=== PATIENT | female | born 1975 | race Caucasian/White ===

== ENCOUNTER 2019-07-12 08:55 | Emergency (ER) | payer OTHER ==
[2019-07-12 09:33] LABS: Absolute Lymphocytes (CBC) 1.6 K/uL (0.7-4.9); Basophils % 0.8 % (0-1.3); Hematocrit 34.4 % (36.0-45.0); Lymphocytes % 22.2 % (15.3-44.8); RBC Red Blood Cell Count 3.82 M/uL (3.86-4.86)
[2019-07-12] MEDS ORDERED: ONDANSETRON 4 MG/2 ML VIAL ONE (09:47)
[2019-07-12 09:54] LABS: ALT/SGPT 20 U/L (12-78); AST/SGOT 14 U/L (15-37); Albumin 3.7 g/dL (3.4-5.0); Alkaline Phosphatase 31 U/L (45-117); BUN Blood Urea Nitrogen 10 mg/dL (7-18); Bicarbonate 28 mmol/L (21-32); Bilirubin Direct < 0.1 mg/dL (0-0.2); Bilirubin Total 0.4 mg/dL (0.2-1.0); Glucose Level 92 mg/dL (74-106); Potassium 3.9 mmol/L (3.5-5.1); Protein, Total 6.7 g/dL (6.4-8.2); Sodium Level 140 mmol/L (136-145)
[2019-07-12 10:07] LABS: Urine Blood NEGATIVE (NEG); Urine Glucose NEGATIVE (NEG); Urine Protein NEGATIVE (NEG); Urine Specific Gravity 1.015 (1.005-1.030); Urine pH 8.5 (5.0-7.0)
--- NOTE | 2019-07-12 10:32 | RAD REPORT ---
EXAM DESCRIPTION: CT - Abdomen Pelvis W Contrast - 07/12/2019 10:13 am CLINICAL HISTORY: Abdominal pain/GI bleed COMPARISON: none. TECHNIQUE: Computed axial tomography of the abdomen pelvis was obtained. 100 cc Isovue-300 was admin istered intravenously. Oral contrast was not requested which limits evaluation of bowel. All CT scans are performed using dose optimization technique as appropriate and may include automated exposure control or mA/KV adjustment according to patient size. FINDINGS: The liver, spleen, pancreas, adrenal and kidneys appear unremarkable. There is no evidence of diverticulitis. A normal appendix 4.2 centimeter left ovarian cystic mass with small amount of free fluid A tiny umbilical hernia IMPRESSION: 4.2 centimeter left ovarian cystic mass with small amount of free fluid. Follow up ultra sound in a couple months recommended to assess stability/resolution
--- NOTE | 2019-07-12 11:11 | ER ---
Nurse's Notes [facility] Name: Josep Ingram Age: 43 yrs Sex: Female : 1975 Arrival Date: 07/12/2019 Time: 08:57 Bed 5 Private MD: Ammon Soto H; Leal, Enrique Diagnosis: Gastrointestinal hemorrhage, unspecified Presentation: 07/12 09:17 Presenting complaint: Patient states: 1 episode of bright red rectal bleeding this ph morning, also c/o nausea and RLQ pain, hx of gastric ulcers and internal hemorrhoids, denies SOB or dizziness. Transition of care: patient was not received from another setting of care. Onset of symptoms was July 12, 2019. Risk Assessment: Do you want to hurt yourself or someone else? Patient reports no desire to harm self or others. Initial Sepsis Screen: Does the patient meet any 2 criteria? No. Patient's initial sepsis screen is negative. Does the patient have a suspected source of infection? No. Patient's initial sepsis screen is negative. Care prior to arrival: None. 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 - Social history:: Smoking status: Patient/guardian denies using tobacco. - Ebola Screening: : No symptoms or risks identified at this time. Screenin:27 Abuse screen: Denies threats or abuse. Denies injuries from another. Nutritional ph screening: No deficits noted. Tuberculosis screening: No symptoms or risk factors identified. Fall Risk None identified. 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 ph 09:25 General: Appears in no apparent distress. comfortable, slender, well groomed, Behavior ph is calm, cooperative, appropriate for age. Pain: Complains of pain in left upper quadrant and right lower quadrant Pain currently is 5 out of 10 on a pain scale. Neuro: Level of Consciousness is awake, alert, obeys commands, Oriented to person, place, time, situation. Cardiovascular: Capillary refill < 3 seconds in bilateral fingers Patient's skin is warm and dry. Respiratory: Airway is patent Respiratory effort is even, unlabored, Respiratory pattern is regular, symmetrical. GI: Abdomen is flat, non-distended, Bowel sounds present X 4 quads. Abd is soft X 4 quads Abdomen is tender to palpation in epigastric area and right lower quadrant Reports lower abdominal pain, upper abdominal pain, diarrhea, rectal bleeding, bloody stool, nausea. Derm: Skin is intact, is healthy with good turgor, Skin is pink, warm \T\ dry. Musculoskeletal: Circulation, motion, and sensation intact. Range of motion: intact in all extremities. 10:10 Reassessment: Patient appears in no apparent distress at this time. Patient and/or ph family updated on plan of care and expected duration. Pain level reassessed. Patient is alert, oriented x 3, equal unlabored respirations, skin warm/dry/pink. Pt ambulated to restroom, reports having BM w/ dark red blood and mucus present, continues to rate pain 5/10, does not want pain medication at this time, taken to CT via wheelchair. 11:18 Reassessment: Patient appears in no apparent distress at this time. Patient and/or ph family updated on plan of care and expected duration. Pain level reassessed. Patient is alert, oriented x 3, equal unlabored respirations, skin warm/dry/pink. Pt d/c home, instructed to follow up w/ GI, return to ED for worsening symptoms. Vital Signs: 09:21 BP 115 / 71; Pulse 73; Resp 18; Temp 98.2; Pulse Ox 99% on R/A; Weight 68.04 kg; Height ph 5 ft. 5 in. (165.10 cm); Pain 5/10; 10:15 BP 121 / 82; Pulse 73; Resp 18; Pulse Ox 100% on R/A; Pain 5/10; ph 11:18 BP 118 / 78; Pulse 71; Resp 18; Temp 97.9; Pulse Ox 99% on R/A; ph 09:21 Body Mass Index 24.96 (68.04 kg, 165.10 cm) ph ED Course: 08:57 Patient arrived in ED. as 08:57 Rishi Michael MD is Private Physician. as 08:57 Ammon Soto MD is Private Physician. as 08:58 Luis Armando Jarrell PA is PHCP. jr8 08:58 Coleman Tristan MD is Attending Physician. jr8 09:16 Fariba Rizo RN is Primary Nurse. ph 09:19 Triage completed. ph 09:23 Initial lab(s) drawn, by az, sent to lab. Inserted saline lock: 20 gauge in right 3 antecubital area, using aseptic technique. Blood collected. 09:24 Arm band placed on Patient placed in an exam room, on a stretcher, on pulse oximetry. ph 09:27 Patient has correct armband on for positive identification. Placed in gown. Bed in low ph position. Call light in reach. Side rails up X 1. Pulse ox on. NIBP on. Door closed. Noise minimized. Warm blanket given. Head of bed elevated. 09:59 Urine collected: clean catch specimen, clear. dh3 10:18 CT Abd/Pelvis - IV Contrast Only In Process Unspecified. EDMS 11:02 Ammon Soto MD is Referral Physician. jr8 11:19 No provider procedures requiring assistance completed. IV discontinued, intact, ph bleeding controlled, No redness/swelling at site. Pressure dressing applied. Administered Medications: 10:14 Drug: Zofran 4 mg Route: IVP; Site: right antecubital; ph 10:44 Follow up: Response: No adverse reaction; Nausea is decreased ph Outcome: 11:02 Discharge ordered by . jr8 11:19 Discharged to home ambulatory, with significant other. ph 11:19 Condition: good 11:19 Discharge instructions given to patient, Instructed on discharge instructions, follow up and referral plans. medication usage, Demonstrated understanding of instructions, follow-up care, medications, Prescriptions given X 1. 11:19 Patient left the ED. ph Signatures: Dispatcher [employer] EDMS Chanell Dorman as Luis Armando Jarrell PA PA jr8 Fariba Rizo RN RN Essence Barajas 3
--- NOTE | 2019-07-12 11:11 | EDPHYS ---
Physician Documentation [facility] Name: Josep Ingram Age: 43 yrs Sex: Female : 1975 Arrival Date: 07/12/2019 Time: 08:57 Bed 5 Private MD: Ammon Soto H; Leal, Enrique ED Physician Coleman Tristan HPI: 07/12 09:51 This 43 yrs old Female presents to ER via Ambulatory with complaints of jr8 Rectal Bleeding. 09:51 The patient presents to the emergency department with bleeding from the rectum/anus, jr8 that is mild. Onset: The symptoms/episode began/occurred acutely, today. Context: the patient has no known special context relating to the rectal area complaint(s). Modifying factors: The symptoms are alleviated by nothing, The symptoms are aggravated by bowel movement. Associate signs and symptoms: Pertinent positives: abdominal pain in the right lower quadrant and left lower quadrant. The patient has not experienced similar symptoms in the past. The patient has not recently seen a physician. Patient stated that she woke up with urge to defecate. Went to the bathroom and thought she had diarrhea. Stated that she looked down and it was pure blood. Having lower abdominal pain as well. 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 - Social history:: Smoking status: Patient/guardian denies using tobacco. - Ebola Screening: : No symptoms or risks identified at this time. ROS: 09:51 Eyes: Negative for injury, pain, redness, and discharge, ENT: Negative for injury, jr8 pain, and discharge, Neck: Negative for injury, pain, and swelling, Cardiovascular: Negative for chest pain, palpitations, and edema, Respiratory: Negative for shortness of breath, cough, wheezing, and pleuritic chest pain, Back: Negative for injury and pain, MS/Extremity: Negative for injury and deformity, Skin: Negative for injury, rash, and discoloration, Neuro: Negative for headache, weakness, numbness, tingling, and seizure. 09:51 Abdomen/GI: Positive for abdominal pain, rectal bleeding, Negative for nausea, vomiting, and diarrhea, hematemesis, black/tarry stool, rectal pain. Exam: 09:51 Eyes: Pupils equal round and reactive to light, extra-ocular motions intact. Lids and jr8 lashes normal. Conjunctiva and sclera are non-icteric and not injected. Cornea within normal limits. Periorbital areas with no swelling, redness, or edema. ENT: Nares patent. No nasal discharge, no septal abnormalities noted. Tympanic membranes are normal and external auditory canals are clear. Oropharynx with no redness, swelling, or masses, exudates, or evidence of obstruction, uvula midline. Mucous membranes moist. Neck: Trachea midline, no thyromegaly or masses palpated, and no cervical lymphadenopathy. Supple, full range of motion without nuchal rigidity, or vertebral point tenderness. No Meningismus. Cardiovascular: Regular rate and rhythm with a normal S1 and S2. No gallops, murmurs, or rubs. Normal PMI, no JVD. No pulse deficits. Respiratory: Lungs have equal breath sounds bilaterally, clear to auscultation and percussion. No rales, rhonchi or wheezes noted. No increased work of breathing, no retractions or nasal flaring. Back: No spinal tenderness. No costovertebral tenderness. Full range of motion. Skin: Warm, dry with normal turgor. Normal color with no rashes, no lesions, and no evidence of cellulitis. MS/ Extremity: Pulses equal, no cyanosis. Neurovascular intact. Full, normal range of motion. Neuro: Awake and alert, GCS 15, oriented to person, place, time, and situation. Cranial nerves II-XII grossly intact. Motor strength 5/5 in all extremities. Sensory grossly intact. Cerebellar exam normal. Normal gait. 09:51 Abdomen/GI: Inspection: abdomen appears normal, Bowel sounds: active, all quadrants, Palpation: soft, in all quadrants, mild abdominal tenderness, in the suprapubic area, right lower quadrant and left lower quadrant, mass, is not appreciated, rebound tenderness, is elicited in all quadrants, voluntary guarding, is not appreciated, involuntary guarding, is not appreciated, no appreciated organomegaly, Rectal exam: rectal tone normal, Stool: sanchez, pink tinged , hemorrhoid(s), are not appreciated, mass, is not appreciated, swelling, is not appreciated, tenderness, is not appreciated, the exam is chaperoned by the nurse, Indicators: McBurney's point is not tender, Hong's sign is negative, Rovsing's sign is negative, Liver: tenderness, is not appreciated. Vital Signs: 09:21 BP 115 / 71; Pulse 73; Resp 18; Temp 98.2; Pulse Ox 99% on R/A; Weight 68.04 kg; Height ph 5 ft. 5 in. (165.10 cm); Pain 5/10; 10:15 BP 121 / 82; Pulse 73; Resp 18; Pulse Ox 100% on R/A; Pain 5/10; ph 11:18 BP 118 / 78; Pulse 71; Resp 18; Temp 97.9; Pulse Ox 99% on R/A; ph 09:21 Body Mass Index 24.96 (68.04 kg, 165.10 cm) ph MDM: 09:03 Patient medically screened. jr8 11:00 Data reviewed: vital signs, nurses notes, lab test result(s), radiologic studies, CT jr8 scan. Data interpreted: Pulse oximetry: on room air is 100 %. Interpretation: normal. 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 ED course: Patient doing well in exam room. No other gross bloody episodes. Feeling better. Labs and CT without acute finding. History of internal hemorrhoids in past. Possibly could be cause. Recommended anusol suppositories for next couple of days. Has appointment with Dr. Soto on Tuesday. Close return precautions given to patient which she understood and would come back if something were to change or worsen . 11:03 Differential diagnosis: hemorrhoids, fissure, diverticulosis, diverticulitis, UC, jr8 colitis, upper GI bleed. 12/05 09:14 Order name: Basic Metabolic Panel; Complete Time: 10:07/12 09:14 Order name: CBC with Diff; Complete Time: 10:07/12 09:14 Order name: Creatinine for Radiology; Complete Time: 10:07/12 09:14 Order name: Hepatic Function; Complete Time: 10:07/12 10:01 Order name: Urine Dipstick--Ancillary (enter results); Complete Time: : em1 07/12 10:01 Order name: Urine --Ancillary (enter results); Complete Time: : em1 07/12 09:14 Order name: IV Saline Lock; Complete Time: :07/12 09:14 Order name: Labs collected and sent; Complete Time: 07/12 09:14 Order name: CT Abd/Pelvis - IV Contrast Only; Complete Time: 10:41 07/12 09:14 Order name: Urine Test (obtain specimen); Complete Time: :07/12 09:14 Order name: Urine Dipstick-Ancillary (obtain specimen); Complete Time: : Administered Medications: 10:14 Drug: Zofran 4 mg Route: IVP; Site: right antecubital; ph 10:44 Follow up: Response: No adverse reaction; Nausea is decreased ph Disposition: 11:35 Co-signature as Attending Physician, Coleman Tristan MD. rn Disposition: 07/12/19 11:02 Discharged to Home. Impression: Gastrointestinal hemorrhage, unspecified. - Condition is Stable. - Discharge Instructions: Gastrointestinal Bleeding, Hemorrhoids, Rectal Bleeding. - Prescriptions for Anusol- HC 25 mg Rectal Suppository - insert 1 suppository by RECTAL route every 12 hours As needed; 20 suppository. - Medication Reconciliation Form, Thank You Letter, Antibiotic Education, Prescription Opioid Use, Work release form form. - Follow up: Ammon Soto MD; When: 5 - 6 days; Reason: Recheck today's complaints, Continuance of care, Re-evaluation by your physician. - Problem is new. - Symptoms have improved. Signatures: Dispatcher [employer] EDMS Coleman Tristan MD MD rn Luis Armando Jarrell PA PA jr8 Fariba Rizo, RN RN ph Corrections: (The following items were deleted from the chart) 11:19 11:02 07/12/2019 11:02 Discharged to Home. Impression: Gastrointestinal hemorrhage, ph unspecified. Condition is Stable. Forms are Medication Reconciliation Form, Thank You Letter, Antibiotic Education, Prescription Opioid Use. Follow up: Ammon Soto; When: 5 - 6 days; Reason: Recheck today's complaints, Continuance of care, Re-evaluation by your physician. Problem is new. Symptoms have improved. jr8
[2019-07-12 11:38] VITALS: BP 118/78; TEMP 97.9; O2SAT 99
== END 2019-07-12 11:19 | disposition home or self-care (01) ==
LOC: ER 08:55
DX: K92.2 Gastrointestinal hemorrhage, unspecified (principal); F32.9 Major depressive disorder, single episode, unspecified; Z79.82 Long term (current) use of aspirin; Z88.0 Allergy status to penicillin; Z98.82 Breast implant status
CPT/HCPCS: 85025; 80048; 36415; 81025; 80076; 81003; 74177; 96374; 99284; Q9967; J2405